=== PATIENT | female | born 1990 | race African-American/Black ===

== ENCOUNTER 2024-01-02 13:56 | Emergency (ER) | payer MEDICAID ==
[~2024-01-02] VITALS: Ht 167.6 cm; Wt 90.7 kg
[2024-01-02 14:13] VITALS: O2SAT 100
[2024-01-02] MEDS ORDERED: CEPH500C2 MT (15:46)
[2024-01-02 16:05] VITALS: BP 140/89; PULSE 99; RESP 16; TEMP 98
== END 2024-01-02 16:06 | disposition home or self-care (01) ==
LOC: ER 14:08
DX: L03.011 Cellulitis of right finger (principal)
CPT/HCPCS: 99283

== ENCOUNTER 2024-01-04 13:37 | Emergency (ER) | payer OTHER, MEDICAID ==
[~2024-01-04] VITALS: Ht 167.6 cm; Wt 91.0 kg
[~2024-01-04 13:37] MED LIST: CEPH500C2 MT
[2024-01-04 13:48] VITALS: O2SAT 99
[2024-01-04] MEDS ORDERED: CYCLOBENZAPRINE 10MG TABLET PO SCH (15:30)
[2024-01-04] MEDS ORDERED: LIDOCAINE HCL/PF 1% 10 MG/ML 5ML VIAL INFIL ONE (15:30)
[2024-01-04] MEDS: TETANUS, DIPHTHERIA, PERTUSSIS VAC/PF 0.5ML (>10YR OLD) IM ONE (15:30)
[2024-01-04] MEDS ORDERED: NAPR-1176 MT (15:53)
[2024-01-04] MEDS ORDERED: SULF1TAB48 MT (15:53)
[2024-01-04 16:37] VITALS: BP 135/62; PULSE 96; RESP 18; TEMP 97.7
== END 2024-01-04 16:39 | disposition home or self-care (01) ==
LOC: ER 13:37
DX: L03.011 Cellulitis of right finger (principal); Z98.890 Other specified postprocedural states
CPT/HCPCS: 90715; 10060; 90471; 99283; Z7610

== ENCOUNTER 2024-03-28 22:40 | Emergency (ER) | payer MEDICAID, OTHER ==
[~2024-03-28] VITALS: Ht 167.6 cm; Wt 88.4 kg
[~2024-03-28 22:40] MED LIST changes: +NAPR-1176 MT; +SULF1TAB48 MT
[2024-03-28 22:45] VITALS: BP 131/81; PULSE 85; RESP 20; TEMP 98.3; O2SAT 100
[2024-03-28 23:05] LABS: CLARITY URINE CLEAR (CLEAR); COLOR URINE YELLOW (YELLOW); GLUCOSE URINE NEGATIVE (NEGATIVE); KETONES URINE NEGATIVE (NEGATIVE); LEUKOCYTE ESTERASE URINE NEGATIVE (NEGATIVE); NITRITE URINE NEGATIVE (NEGATIVE); OCCULT BLOOD URINE TRACE (NEGATIVE); PH URINE >=9.0 (4.5-8.0); PROTEIN URINE TRACE (NEGATIVE); SPECIFIC GRAVITY URINE 1.024 (1.005-1.030); UROBILINOGEN URINE 0.2 E.U./dL (0.2-1.0)
[2024-03-28 23:25] LABS: BACTERIA URINE 1+; SQUAMOUS EPITHELIAL CELL URINE 1+ /lpf (RARE/1+)
[2024-03-28 23:26] LABS: WBC URINE 0-2 /hpf (0-2)
[2024-03-29] MEDS ORDERED: IBUPROFEN 800MG TABLET PO ONE (00:15)
[2024-03-29] MEDS: ONDANSETRON 4MG ODT PO ONE (00:24)
[2024-03-29 00:32] LABS: BASOPHILS % 0.6 % (0.0-2.0); EOSINOPHILS % 2.9 % (0.0-5.0); HEMATOCRIT. 34.2 % (36.0-48.0); HEMOGLOBIN. 11.4 g/dL (12.0-16.0); LYMPHOCYTES % 28.4 % (20.0-50.0); MEAN CORPUSCULAR HEMOGLOBIN 28.7 pg (28.0-32.0); MEAN CORPUSCULAR HGB CONC 33.4 g/dL (31.0-37.0); MEAN CORPUSCULAR VOLUME 85.9 fL (81.0-99.0); MEAN PLATELET VOLUME 7.8 fl (7.4-10.4); MONOCYTES % 5.5 % (2.0-8.0); NEUTROPHILS % 62.6 % (40.0-76.0); PLATELET 339 x1000/uL (130-400); RED BLOOD CELL COUNT 3.98 mill/uL (4.2-5.4); RED CELL DISTRIBUTION WIDTH 18.4 % (11.6-14.6); WHITE BLOOD COUNT 9.1 x1000/uL (4.5-11.0)
[2024-03-29 00:43] LABS: CHLORIDE 105 mEq/L (98-107); POTASSIUM 3.8 mEq/L (3.5-5.1); SODIUM 136 mEq/L (136-145)
[2024-03-29 00:44] LABS: CARBON DIOXIDE 25 mEq/L (21-32)
[2024-03-29] MEDS: IBUPROFEN 800MG TABLET PO NR (00:47)
[2024-03-29 00:49] LABS: CREATININE 0.8 mg/dL (0.6-1.0)
[2024-03-29 00:50] LABS: GLUCOSE 97 mg/dL (70-105); UREA NITROGEN BLOOD 11 mg/dL (9-23)
[2024-03-29 00:51] LABS: ALANINE AMINOTRANSFERASE 32 IU/L (10-49); ALBUMIN 4.3 g/dL (3.2-4.8); ASPARTATE AMINOTRANSFERASE 22 IU/L (<34)
[2024-03-29 00:52] LABS: BILIRUBIN DIRECT 0.1 mg/dL (<=3.0); BILIRUBIN TOTAL 0.4 mg/dL (0.1-1.0)
[2024-03-29 01:00] LABS: HCG SCREEN NEGATIVE
[2024-03-29] MEDS ORDERED: MORPHINE SULFATE 4 MG/ML INJ (FOR IV/IM USE) IV STA (01:17)
[2024-03-29] MEDS ORDERED: IBUP-2030 MT (01:44)
[2024-03-29] MEDS ORDERED: TRAM50TA3 MT (01:44)
[2024-03-29] MEDS: MORPHINE SULFATE 4 MG/ML INJ (FOR IV/IM USE) IV NR (02:27)
[2024-03-29] MEDS: SODIUM CHLORIDE 0.9% 1,000 ML IV ONE (02:27)
== END 2024-03-29 02:51 | disposition home or self-care (01) ==
LOC: ER 22:40
DX: K80.20 Calculus of gallbladder without cholecystitis without obstruction (principal); R10.84 Generalized abdominal pain; Z98.890 Other specified postprocedural states
CPT/HCPCS: 99284; 81003; 81025; 36415; 74176; 76705; 80076; 80048; 84703; 85025; Q0162; J7030

== ENCOUNTER 2024-10-30 17:25 | Emergency (ER) | payer OTHER ==
[~2024-10-30] VITALS: Ht 167.6 cm; Wt 86.0 kg
[~2024-10-30 17:25] MED LIST changes: +IBUP-2030 MT; +TRAM50TA3 MT
[2024-10-30 17:33] VITALS: O2SAT 99
[2024-10-30 18:06] LABS: CLARITY URINE CLEAR (CLEAR); COLOR URINE DARK YELLOW (YELLOW); GLUCOSE URINE NEGATIVE (NEGATIVE); KETONES URINE NEGATIVE (NEGATIVE); LEUKOCYTE ESTERASE URINE NEGATIVE (NEGATIVE); NITRITE URINE NEGATIVE (NEGATIVE); OCCULT BLOOD URINE 1+ (NEGATIVE); PROTEIN URINE NEGATIVE (NEGATIVE); SPECIFIC GRAVITY URINE 1.025 (1.005-1.030)
[2024-10-30 18:22] LABS: CHLORIDE 106 mEq/L (98-107); POTASSIUM 3.8 mEq/L (3.5-5.1); SODIUM 140 mEq/L (136-145)
[2024-10-30 18:23] LABS: CALCIUM 9.5 mg/dL (8.7-10.4); CARBON DIOXIDE 28 mEq/L (21-32)
[2024-10-30 18:24] LABS: BASOPHILS % 0.6 % (0.0-2.0); HEMATOCRIT. 33.8 % (36.0-48.0); HEMOGLOBIN. 11.5 g/dL (12.0-16.0); LYMPHOCYTES % 40.6 % (20.0-50.0); MEAN CORPUSCULAR HGB CONC 34.1 g/dL (31.0-37.0); MEAN CORPUSCULAR VOLUME 90.8 fL (81.0-99.0); MEAN PLATELET VOLUME 7.8 fl (7.4-10.4); MONOCYTES % 5.6 % (2.0-8.0); NEUTROPHILS % 50.2 % (40.0-76.0); PLATELET 318 x1000/uL (130-400); RED BLOOD CELL COUNT 3.72 mill/uL (4.2-5.4); RED CELL DISTRIBUTION WIDTH 15.6 % (11.6-14.6); WHITE BLOOD COUNT 7.7 x1000/uL (4.5-11.0)
[2024-10-30 18:28] LABS: CREATININE 0.7 mg/dL (0.6-1.0); GLUCOSE 92 mg/dL (70-105); UREA NITROGEN BLOOD 13 mg/dL (9-23)
[2024-10-30 18:35] LABS: HCG SCREEN NEGATIVE
[2024-10-30 19:12] LABS: SQUAMOUS EPITHELIAL CELL URINE FEW /lpf (RARE/1+)
[2024-10-30 19:13] LABS: BACTERIA URINE NONE SEEN; WBC URINE NONE SEEN /hpf (0-2); YEAST URINE NONE SEEN
[2024-10-30] MEDS: ACETAMINOPHEN 325MG TABLET PO ONE (20:05)
[2024-10-30] MEDS: ONDANSETRON HCL 4MG TABLET PO ONE (20:05)
[2024-10-30] MEDS ORDERED: IBUP-2029 MT (20:31)
[2024-10-30] MEDS ORDERED: TRAM50TA3 MT (20:31)
[2024-10-30 20:49] VITALS: BP 116/78; PULSE 89; RESP 20; TEMP 36.72516; O2SAT 99
== END 2024-10-30 21:07 | disposition home or self-care (01) ==
LOC: ER 17:25
DX: K80.20 Calculus of gallbladder without cholecystitis without obstruction (principal); Z79.1 Long term (current) use of non-steroidal anti-inflammatories (NSAID); Z98.890 Other specified postprocedural states
CPT/HCPCS: 99284; 76705; 80048; 81003; 81025; 84703; 83690; 85025; 36415; Q0162